=== PATIENT | female | born 1970 | race Caucasian/White ===

== ENCOUNTER 2024-08-13 07:22 | Day surgery (SDC) | payer OTHER ==
[~2024-08-13] VITALS: Ht 180.3 cm; Wt 109.3 kg
[~2024-08-13 07:22] MED LIST: CLON2; IBUHYD; IBUHYD PO; Lactated Ringer's 1,000 ML IV ONE; MELO7.5; PHENTERMINE; VENL75; propofoL 50 ML IV ONE
[2024-08-13] MEDS ORDERED: propofoL 50 ML IV ONE ×2 (07:32→09:17)
[2024-08-13] MEDS ORDERED: Lactated Ringer's 1,000 ML IV ONE ×2 (07:32→08:40)
[2024-08-13] MEDS ORDERED: TRAM50 (07:48)
[2024-08-13] MEDS ORDERED: VYVANSE40 MG (07:49)
[2024-08-13] MEDS ORDERED: TIZA4 (07:49)
[2024-08-13] MEDS ORDERED: QUET25 (07:50)
[2024-08-13] MEDS ORDERED: ATOR10 (07:50)
[2024-08-13] MEDS ORDERED: GABA400 (07:50)
[2024-08-13] MEDS ORDERED: FLUO10 (07:51)
[2024-08-13] MEDS ORDERED: ACYC400 (07:51)
[2024-08-13] MEDS ORDERED: MULTI-VITAMIN1 EAC2 (07:52)
[2024-08-13] MEDS ORDERED: LISI20 (07:52)
[2024-08-13] MEDS ORDERED: DOCU100 (07:53)
[2024-08-13] MEDS ORDERED: VITAMIN D5000 UNIT (07:53)
[2024-08-13] MEDS ORDERED: Vitamin B-Comp1 EAC7 (07:53)
[2024-08-13] MEDS ORDERED: MAGCHL64ER (07:53)
[2024-08-13 09:44] VITALS: BP 112/79
== END 2024-08-13 09:42 | disposition home or self-care (01) ==
LOC: ORSCSDS 07:22
PROVIDERS: Surgery
PROC: 0DJD8ZZ Inspection of Lower Intestinal Tract, Via Natural or Artificial Opening Endoscopic (ICD-10-PCS; principal; 2024-08-13 08:45)
DX: Z12.11 Encounter for screening for malignant neoplasm of colon (principal); M79.7 Fibromyalgia; I10 Essential (primary) hypertension; F31.9 Bipolar disorder, unspecified; F41.9 Anxiety disorder, unspecified; J45.909 Unspecified asthma, uncomplicated; F43.10 Post-traumatic stress disorder, unspecified; Z79.899 Other long term (current) drug therapy; Z87.891 Personal history of nicotine dependence
CPT/HCPCS: J2704; J7120